=== PATIENT | female | born 1990 | race African-American/Black ===

== ENCOUNTER 2016-07-26 11:59 | Emergency (ER) | payer SELFPAY ==
[~2016-07-26] VITALS: Ht 162.6 cm; Wt 75.0 kg
[~2016-07-26 11:59] MED LIST: BACLOFEN; KEPPRA 500 MG; PHENOBARBITAL; PHENYTOIN
[2016-07-26] MEDS ORDERED: LORAZEPAM 2MG/ML CPJ IV ONE (12:30)
[2016-07-26] MEDS ORDERED: KETOROLAC 30MG/ML VIAL IV ONE (12:30)
[2016-07-26] MEDS ORDERED: SODIUM CHLORIDE 0.9% 1,000 ML IV ONE (12:30)
[2016-07-26] MEDS ORDERED: LEVETIRACETAM 500MG/5ML CUP PO ONE (13:00)
[2016-07-26 13:13] LABS: CLARITY URINE CLEAR (CLEAR); COLOR URINE YELLOW (YELLOW); GLUCOSE URINE NEGATIVE (NEGATIVE); KETONES URINE NEGATIVE (NEGATIVE); LEUKOCYTE ESTERASE URINE NEGATIVE (NEGATIVE); NITRITE URINE NEGATIVE (NEGATIVE); OCCULT BLOOD URINE NEGATIVE (NEGATIVE); PROTEIN URINE NEGATIVE (NEGATIVE); SPECIFIC GRAVITY URINE 1.008 (1.005-1.030); UROBILINOGEN URINE 0.2 E.U./dL (0.2-1.0)
[2016-07-26] MEDS ORDERED: LEVETIRACETAM 500MG PREMIX 100 ML IV SCH (13:15)
[2016-07-26 13:36] LABS: *AMPHETAMINES SCREEN URINE NEGATIVE (NEGATIVE); *BENZODIAZEPINES SCREEN URINE NEGATIVE (NEGATIVE); *COCAINE SCREEN URINE NEGATIVE (NEGATIVE); CANNABINOID URINE SCREEN NEGATIVE (NEGATIVE); ECSTASY MDMA SCREEN URINE NEGATIVE (NEGATIVE); METHADONE URINE SCREEN NEGATIVE (NEGATIVE); OPIATES URINE SCREEN NEGATIVE (NEGATIVE); PHENCYCLIDINE URINE SCREEN NEGATIVE (NEGATIVE)
[2016-07-26 13:37] LABS: *BARBITURATES SCREEN URINE PRESUMTIVE POSITIVE (NEGATIVE)
[2016-07-26 14:38] LABS: HEMATOCRIT. 37.4 % (36.0-48.0); HEMOGLOBIN. 12.4 g/dL (12.0-16.0); MEAN CORPUSCULAR HEMOGLOBIN 28.1 pg (28.0-32.0); MEAN CORPUSCULAR HGB CONC 33.2 g/dL (31.0-37.0); MEAN CORPUSCULAR VOLUME 84.7 fL (81.0-99.0); PLATELET 201 x1000/uL (130-400); RED BLOOD CELL COUNT 4.41 mill/uL (4.2-5.4); RED CELL DISTRIBUTION WIDTH 13.9 % (11.6-14.6); WHITE BLOOD COUNT 5.4 x1000/uL (4.5-11.0)
[2016-07-26 14:41] LABS: CHLORIDE 110 mEq/L (98-107)
[2016-07-26 14:49] LABS: ANION GAP 12; CALCIUM 8.1 mg/dL (8.5-10.1); CARBON DIOXIDE 24 mEq/L (21-32); INDEX HEMOLYSI 4 (1-3); INDEX ICTERIC 1 (1-4); INDEX LIPEMIC 1 (1-3); PHENYTOIN 4.2 ug/mL (10-20); UREA NITROGEN BLOOD 9 mg/dL (7-21); eGFR > 60 mL/min (>60)
[2016-07-26 14:56] LABS: PLATELET ESTIMATE NORMAL
[2016-07-26 15:05] LABS: HCG SCREEN NEGATIVE
[2016-07-26] MEDS ORDERED: PHENYTOIN SODIUM EXTENDED 100MG CAPSULE PO ONE (15:30)
[2016-07-26 15:43] LABS: PHENYTOIN 4.2 ug/mL (10-20)
[2016-07-26 15:46] LABS: CARBAMAZEPINE < 0.5 ug/mL (4-12); PHENOBARBITAL 3.3 ug/mL (15.0-40.0); VALPROIC ACID < 3.0 ug/mL (50-100)
[2016-07-26] MEDS ORDERED: PHENOBARBITAL 100MG TABLET PO ONE (16:00)
[2016-07-26] MEDS ORDERED: PHENOBARBITAL 60MG TABLET PO NR (16:08)
[2016-07-26 18:20] VITALS: BP 117/75
== END 2016-07-26 18:20 | disposition home or self-care (01) ==
LOC: ER 12:54
DX: G40.909 Epilepsy, unspecified, not intractable, without status epilepticus (principal); S00.03XA Contusion of scalp, initial encounter; Z98.890 Other specified postprocedural states; Z88.6 Allergy status to analgesic agent; W01.0XXA Fall on same level from slipping, tripping and stumbling without subsequent striking against object, initial encounter; Y93.89 Activity, other specified; Y92.018 Other place in single-family (private) house as the place of occurrence of the external cause
CPT/HCPCS: 36415; 70450; 73110; 73130; 80048; 80156; 80165; 80184; 80185; 80305; 81003; 84703; 85007; 85027; 96361; 96365; 96375; 99285; J1885; J1953; J2060; J7030; Z7610; A4565

== ENCOUNTER 2016-10-24 06:16 | Emergency (ER) | payer SELFPAY ==
[~2016-10-24] VITALS: Ht 162.6 cm; Wt 74.0 kg
[2016-10-24] MEDS ORDERED: METHYLPREDNISOLONE SOD SUCC 125 MG/2 ML VIAL IV ONE (07:00)
[2016-10-24] MEDS ORDERED: FAMOTIDINE 20MG/2ML VIAL IV ONE (07:00)
[2016-10-24] MEDS ORDERED: DIPHENHYDRAMINE 50MG/ML VIAL IV ONE (07:00)
[2016-10-24 08:38] VITALS: BP 146/71
== END 2016-10-24 08:51 | disposition home or self-care (01) ==
LOC: ER 07:44
DX: R07.0 Pain in throat (principal); Z88.6 Allergy status to analgesic agent; Z88.5 Allergy status to narcotic agent; R56.9 Unspecified convulsions; F17.210 Nicotine dependence, cigarettes, uncomplicated
CPT/HCPCS: 70360; 81025; 96374; 96375; 99284; J1200; J2930; J3490; Z7610

== ENCOUNTER 2016-10-26 15:21 | Emergency (ER) | payer SELFPAY ==
[~2016-10-26] VITALS: Ht 162.6 cm; Wt 75.0 kg
[2016-10-26 18:02] VITALS: BP 135/57
[2016-10-26 19:07] LABS: CLARITY URINE CLEAR (CLEAR); COLOR URINE YELLOW (YELLOW); GLUCOSE URINE NEGATIVE (NEGATIVE); KETONES URINE NEGATIVE (NEGATIVE); LEUKOCYTE ESTERASE URINE TRACE (NEGATIVE); NITRITE URINE NEGATIVE (NEGATIVE); OCCULT BLOOD URINE NEGATIVE (NEGATIVE); PH URINE >=9.0 (4.5-8.0); PROTEIN URINE NEGATIVE (NEGATIVE); SPECIFIC GRAVITY URINE 1.022 (1.005-1.030)
[2016-10-26] MEDS ORDERED: CEFTRIAXONE SODIUM 250 MG/VIAL IM ONE (20:45)
[2016-10-26] MEDS ORDERED: LIDOCAINE HCL 1% 20ML VIAL (Pyxis) INJ INFIL ONE (20:45)
[2016-10-26] MEDS ORDERED: AZITHROMYCIN 500 MG TABLET PO ONE (20:45)
[2016-10-29 04:16] LABS: CHLAMYDIA TRACHOMATIS NAA Negative (Negative); NEISSERIA GONORRHOEAE NAA Negative (Negative)
== END 2016-10-26 23:13 | disposition home or self-care (01) ==
LOC: ER 19:27
DX: N76.0 Acute vaginitis (principal); N72 Inflammatory disease of cervix uteri; N89.8 Other specified noninflammatory disorders of vagina; Z88.5 Allergy status to narcotic agent; Z88.6 Allergy status to analgesic agent
CPT/HCPCS: 76830; 76856; 81001; 81025; 87070; 87081; 87210; 87491; 87591; 96372; 99285; J0696; J3490; Z7610

== ENCOUNTER 2018-06-10 12:42 | Emergency (ER) | payer MEDICAID ==
[~2018-06-10] VITALS: Ht 170.2 cm; Wt 84.0 kg
[2018-06-10] MEDS ORDERED: SODIUM CHLORIDE 0.9% 1,000 ML IV ONE (13:25)
[2018-06-10 15:57] LABS: BASOPHILS % 1.3 % (0.0-2.0); EOSINOPHILS % 4.3 % (0.0-5.0); HEMATOCRIT. 39.2 % (36.0-48.0); HEMOGLOBIN. 13.3 g/dL (12.0-16.0); LYMPHOCYTES % 33.9 % (20.0-50.0); MEAN CORPUSCULAR HEMOGLOBIN 29.5 pg (28.0-32.0); MEAN CORPUSCULAR VOLUME 86.7 fL (81.0-99.0); MONOCYTES % 7.6 % (2.0-8.0); NEUTROPHILS % 52.9 % (40.0-76.0); PLATELET 233 x1000/uL (130-400); RED BLOOD CELL COUNT 4.52 mill/uL (4.2-5.4); RED CELL DISTRIBUTION WIDTH 14.7 % (11.6-14.6)
[2018-06-10 16:02] LABS: CHLORIDE 115 mEq/L (98-107)
[2018-06-10] MEDS ORDERED: PHENYTOIN SODIUM 500 MG in SODIUM CHLORIDE 0.9% 50 ML IV NR (16:30)
[2018-06-10 18:38] VITALS: BP 164/89
== END 2018-06-10 18:41 | disposition home or self-care (01) ==
LOC: ER 12:50
DX: R56.9 Unspecified convulsions (principal); Z85.3 Personal history of malignant neoplasm of breast; Z98.890 Other specified postprocedural states; Z88.6 Allergy status to analgesic agent; Z88.1 Allergy status to other antibiotic agents
CPT/HCPCS: 36415; 80053; 80185; 85025; 96365; 99283; J1165; J7030